=== PATIENT | male | born 1955 | race Caucasian/White ===

== ENCOUNTER 2025-06-11 08:26 | Outpatient (CLI) | payer MEDICARE, BC, SELFPAY ==
--- NOTE | ~2025-06-11 | NM_ITS ---
EXAMINATION: NM_HEPATWP_NM DATE: 06/11/2025 10:41 INDICATION: Cholelithiasis. Right upper quadrant abdominal pain. COMPARISON: None. TECHNIQUE: 5.2 mCi Tc-99m mebrofenin (Choletec) was administered intravenously. Scintigraphic images of the abdomen were obtained for one hour. 2.5 mcg sincalide (Kinevac) was administered by slow intravenous infusion, and imaging was continued for 30 minutes. Gallbladder ejection fraction was calculated by the technologist. FINDINGS: There is normal clearance of radiotracer from the blood pool. There is homogeneous tracer uptake by the liver. Activity progresses to the gallbladder and bowel. The gallbladder ejection fraction (GBEF) is 17% (normal 10-90%, but most patient with gallbladder dysfunction have GBEF < 35% which does overlap with the normal range). IMPRESSION: 1. Gallbladder ejection fraction of 17% which is at the lower range of normal. This could be normal but is also within the range of overlap with gallbladder dysfunction or chronic cholecystitis in the appropriate clinical setting. Reviewed, dictated and finalized at location A.
--- OUTSIDE RECORDS SUMMARY | 2025-06-11 08:45 | XMS_ITS | Clinical Summary ---
Author Organization [facility] Address [address] [place] [address] Phone Care Team Providers Care Electric Container Tester Name Role Phone Unavailable Primary Care Provider Unavailabl e Allergies Active Allergy Reactions Criticality Noted Date Comments Atorvastatin Other (See Comments) Low 05/11/2022 Joint pain Medications fexofenadine (BALTA) 180 mg tablet Take 180 mg by mouth daily. Active ALPRAZolam (XANAX) 0.25 mg tablet Take 0.25 mg by mouth 3 times daily as needed for Anxiety. Active amLODIPine (NORVASC) 5 mg tablet Take 7.5 mg by mouth daily. Active cefdinir (OMNICEF) 300 mg capsule Take 300 mg by mouth every 12 hours. Active lisinopriL (PRINIVIL) 10 mg tablet Take 10 mg by mouth daily. Active pravastatin (PRAVACHOL) 20 mg tablet Take 20 mg by mouth daily with supper. Active sodium bicarbonate 650 mg tablet Take 650 mg by mouth daily. Active tamsulosin (FLOMAX) 0.4 mg capsule Take 0.4 mg by mouth daily. 1/2 hour after the same meal each day Active triamcinolone acetonide 0.025 % Lotion Apply to affected area. Apply thin layer to the affected areas Active sildenafiL (VIAGRA) 100 mg tablet Take 50-100 mg by mouth 1 time daily as needed for Erectile Dysfunction. Active Cholecalciferol, Vitamin D3, 50 mcg (2,000 unit) Capsule Take 1 Capsule by mouth daily. Active apixaban (ELIQUIS) 5 mg tablet Take 1 Tablet (5 mg) by mouth 2 times daily. Active Social History Tobacco Use Types Packs/Day Years Used Date Smoking Tobacco: Former Cigarettes Tobacco Cessation:Counseling Given: Not Answered Sex and Gender Information Value Date Recorded Sex Assigned at Not on file Legal Sex Male 2:00 PM CDT Gender Identity Not on file Sexual Orientation Not on file Last Filed Vital Signs Vital Sign Reading Time Taken Comments Blood Pressure 130/85 05/12/2022 1:00 PM CDT Pulse 65 05/12/2022 1:00 PM CDT Temperature 36.3 C (97.3 F) 05/12/2022 10:40 AM CDT Respiratory Rate 14 05/12/2022 11:09 AM CDT Oxygen Saturation 99% 05/12/2022 1:00 PM CDT Inhaled Oxygen Concentration - - Weight 113.4 kg (250 lb) 05/12/2022 7:19 AM CDT Height 185.4 cm (6' 1) 05/12/2022 7:19 AM CDT Body Mass Index 32.98 05/12/2022 7:19 AM CDT Plan of Treatment Health Maintenance Due Date Last Done Comments DTAP/TDAP/TD VACCINES (1 - Tdap) 1973 COLORECTAL SCREENING 1999 Colorectal Cancer Screening 1999 FIT-DNA Q 3 years 1999 FIT/FOBT Q 1 year 1999 Flex Sig/CT Colonography Q 5 years 1999 PNEUMOCOCCAL VACCINE 50+ YEARS (1 of 1 - PCV) 02/18/20 04 ZOSTER VACCINE (1 of 2) 02/18/2004 INFLUENZA VACCINE (#1) 2025 RSV VACCINE (60+ or ) (1 - 1-dose 75+ series) 2029 Medical Devices Implanted Type Area Agents' Records Clerk Device Identifier Shelf Expiration Date Model / Serial / Lot Closure Perclose Proglide [id number] - [id number] Implanted:Qty : 1 on 05/12/2022 at [facility] Closure Device Right: Groin JERONIMO- VASC DEVICE 02/20/2024 [id number] / / [id number] Closure Perclose Proglide [id number] - [id number] Implanted:Qty : 1 on 05/12/2022 at [facility] Closure Device Right: Groin JERONIMO- VASC DEVICE 02/20/2024 [id number] / / [id number] Pacemaker Micra Vr 23fr 105cm Transcath Pacing [facility] [id number] - [id number] Implanted:Qty : 1 on 05/12/2022 at [facility] Pacemaker Chest [employer] 05/20/2023 [id number] / [id number] / Insurance MEDICARE PART A AND B Advance Directives For more information, please contact: [phone] * Full Code (Latest Code Status on File) Date Activated Date Inactivated Comments 05/12/2022 12:17 PM 05/12/2022 5:10 PM
--- OUTSIDE RECORDS SUMMARY | 2025-06-11 08:45 | XMS_ITS | Clinical Summary ---
Author Organization [facility] Address [address] [place] [address] Phone Care Team Providers Care Parts Chaser Name Role Phone Ramez Bermeo MD Primary Care Provider [phone] Medications amLODIPine (NORVASC) 5 MG Tablet Take 5 mg by mouth daily. Active fluticasone (FLONASE) 50 MCG/ACT Suspension 1-2 Sprays by Nasal route daily. Use in each nostril as directed. Active lisinopril (PRINIVIL, ZESTRIL) 10 MG Tablet Take 10 mg by mouth daily. Active pravastatin (PRAVACHOL) 20 MG Tablet Take 20 mg by mouth daily. Active tamsulosin (FLOMAX) 0.4 MG Capsule Take 0.4 mg by mouth daily. Active Vitamin D3 1000 UNIT Tablet Take 25 mcg by mouth daily. Active sildenafil citrate (VIAGRA) 100 MG Tablet Take 100 mg by mouth as needed. Active MEDICAL CANNABIS Act cipriano SODIUM BICARBONATE PO Take 650 mg by mouth. Active triamcinolone (KENALOG) 0.025 % Cream Apply 2 times daily. Active Fexofenadine HCl (BALTA PO) Take by mouth. Active Family History Medical History Relation Name Comments Stroke Father Heart Disease Mother Relation Name Status Comments Father Mother Social History Tobacco Use Types Packs/Day Years Used Date Smoking Tobacco: Former Cigarettes Q uit: 08/23/2006 Smokeless Tobacco: Never Alcohol Use Standard Drinks/Week Comments Not Currently 0 (1 standard drink = 0.6 oz pur e alcohol) Sex and Gender Information Value Date Recorded Sex Assigned at Not on file Legal Sex Male 11:19 AM CDT Gender Identity Not on file Sexual Orientation Not on file Last Filed Vital Signs Vital Sign Reading Time Taken Comments Blood Pressure 160/80 03/30/2022 3:27 PM CDT Pulse 52 03/30/2022 3:27 PM CDT Temperature 36.6 C (97.9 F) 03/30/2022 3:27 PM CDT Respiratory Rate 18 03/30/2022 3:27 PM CDT Oxygen Saturation 98% 03/30/2022 3:27 PM CDT Inhaled Oxygen Concentration - - Weight 115.4 kg (254 lb 8 oz) 03/30/2022 3:27 PM CDT Height 185.4 cm (6' 1) 03/30/2022 3:27 PM CDT Body Mass Index 33.58 03/30/2022 3:27 PM CDT Plan of Treatment Health Maintenance Due Date Last Done Comments Hepatitis C Virus (HCV) Screening 1954 Cologuard 1999 Colonoscopy 1999 Colorectal Cancer Screening 1999 Immunochemical Fecal Occult Blood 1999 Pneumococcal Immunization (50+ years) (1 of 1 - PCV) 02/18/2004 Zoster Immunization (1 of 2) 02/18/2004 Medicare Initial AWV [id number] 01/22/2020 Influenza Immunization (#1) 04/23/202504/25, 05/30/2020, 07/21/2018 SARS-COV-2 Immunization ( season) 2025 01/22/2022, 06/17/2021, 11/14/2020, Additional history exists Respiratory Syncytial Virus (RSV) Immunization (Adult) (1 - 1-dose 75+ series) 2029 DTaP/Tdap/Td Immunization Discontinued 10/07/2018 TdaP Immunization Completed 10/07/2018 Hepatitis B Immunization Aged Out No longer eligible based on patient's age to complete this topic Human Papillomavirus (HPV) Immunization Aged Out No longer eligible based on patient's age to complete this topic Meningococcal Immunization (ACWY) Aged Out No longer eligible based on patient's age to complete this topic Rotavirus Immunization Aged Out No lo nger eligible based on patient's age to complete this topic Insurance MEDICARE [facility] Care Teams Parts Chaser Relationship Specialty Start Date End Date Ramez Bermeo MD [address] [place] [phone] PCP - General Family Medicine 03/25/22
--- OUTSIDE RECORDS SUMMARY | 2025-06-11 08:45 | XMS_ITS | Clinical Summary ---
Author Organization [facility] Address [address] [place] [address] Phone Care Team Providers Care Advertising Operations Manager Name Role Phone Ramez Bermeo MD Primary Care Provider Allergies Active Allergy Reactions Criticality Noted Date Comments Roman Inhibitors 08/14/2024 Atorvastatin 08/14/2024 Social History Tobacco Use Types Packs/Day Years Used Date Smoking Tobacco: Never Assessed Sex and Gender Information Value Date Recorded Sex Assigned at Not on file Legal Sex Male 9:25 AM MDT Gender Identity Not on file Sexual Orientation Not on file Plan of Treatment Upcoming Encounters Date Type Department Care Team (Late st Contact Info) Description 11/05/2025 10:00 AM CDT Office Visit [facility] [address] [place] [address] Iván Faye MD [address] [address] Health Maintenance Due Date Last Done Comments Pneumococcal PPSV23/PCV13 65 + Years / High and Highest Risk (1 of 5 - PCV) 1973 Influenza Vaccine (#1) 2025 05/30/2020, 2017 Insurance MEDICARE PM INTERFACED INSURANCE Care Teams Advertising Operations Manager Relationship Specialty Start Date End Date Ramez Bermeo MD [address] [place] [phone] PCP - General 08/14/24
== END 2025-06-11 08:27 | disposition home or self-care (01) ==
PROVIDERS: Visit Provider Surgery
DX: K80.20 Calculus of gallbladder without cholecystitis without obstruction (principal)
CPT/HCPCS: 78227; A9537; J2805

== ENCOUNTER 2025-07-23 10:10 | Outpatient (CLI) | payer MEDICARE, BC, SELFPAY ==
--- NOTE | 2025-07-23 10:34 | ECG_ITS ---
Test Date: 2025-07-23 10:55:32 Measurements Intervals [place] Rate: 60 P: 0 KS: 0 QRS: 48 QRSD: 153 T: 108 QT: 462 QTc: 462 Interpretive Statements ELECTRONIC VENTRICULAR PACEMAKER BASELINE ARTIFACT- I, II, III, AVR, AVL, AVF, V1-V6 NO FURTHER INTERPRETATION IS POSSIBLE ATYPICAL ECG No previous ECG available for comparison Electronically Signed On 07-23-2025 13:15:17 STRING TOP SEALER by Gurjit Clark D.O.
[2025-07-23 11:17] LABS: INR 2.4; Prothrombin Time 25.6 Seconds (11.1-14.7)
[2025-07-23 11:18] LABS: Partial Thromboplastin Time 38.1 Seconds (22.3-36.8)
[2025-07-23 11:25] LABS: Alanine Aminotransferase 20 U/L (6-50); Albumin Level 4.4 g/dL (3.5-5.1); Alkaline Phosphatase 89 U/L (38-126); Amylase 114 U/L (30-110); Aspartate Amino Transferase 32 U/L (17-59); Bilirubin,Total 0.9 mg/dL (0.2-1.3); Lipase 147 U/L (23-300); Total Protein 7.9 g/dL (6.3-8.2)
--- OUTSIDE RECORDS SUMMARY | 2025-07-23 11:34 | XMS_ITS | Clinical Summary ---
Author Organization [facility] Address [address] [place] [address] Phone Care Team Providers Care Tank Bottom Assembler Name Role Phone Ramez Bermeo MD Primary Care Provider [phone] Medications amLODIPine (NORVASC) 5 MG Tablet Take [...] Years Used Date Smoking Tobacco: Former Cigarettes 0 Q uit: 08/23/2006 Smokeless Tobacco: Never Alcohol [...] age to complete this topic Insurance MEDICARE [facility] Care Teams Tank Bottom Assembler Relationship Specialty Start Date End Date Ramez Bermeo MD [address] [place] [phone] PCP - General Family Medicine 03/25/22
--- OUTSIDE RECORDS SUMMARY | 2025-07-23 11:34 | XMS_ITS | Clinical Summary ---
Author Organization [facility] Address [address] [place] [address] Phone Care Team Providers Care Bradley Linebacker Crewmember Name Role Phone Ramez Bermeo MD Primary [...] Description 11/05/2025 10:00 AM CDT Office Visit [facility] [address] [place] [address] Iván Faye MD [address] [address] Health Maintenance Due Date Last Done Comments Pneumococcal PPSV23/PCV13 65 + Years / High and Highest Risk (1 of 5 - PCV) 1973 Influenza Vaccine (#1) 2025 05/30/2020, 2017 Insurance MEDICARE PM INTERFACED INSURANCE Care Teams Bradley Linebacker Crewmember Relationship Specialty Start Date End Date Ramez Bermeo MD [address] [place] [phone] PCP - General 08/14/24
--- OUTSIDE RECORDS SUMMARY | 2025-07-23 11:34 | XMS_ITS | Clinical Summary ---
Author Organization [facility] Address [address] [place] [address] Phone Care Team Providers Care Telegraph Repeater Technician Name Role Phone Unavailable Primary Care Provider [...] series) 2029 Medical Devices Implanted Type Area Sleeve Sewer Device Identifier Shelf Expiration Date Model / Serial / Lot Closure Perclose Proglide 11313 - [id number] Implanted:Qty : 1 on 05/12/2022 at [facility] Closure Device Right: Groin JERONIMO- VASC DEVICE 02/20/2024 [id number] / / [id number] Closure Perclose Proglide [id number] - [id number] Implanted:Qty : 1 on 05/12/2022 at [facility] Closure Device Right: Groin JERONIMO- VASC DEVICE 02/20/2024 [id number] / / [id number] Pacemaker Micra Vr 23fr 105cm Transcath Pacing s [id number] - [id number] Implanted:Qty : 1 on 05/12/2022 at [facility] Pacemaker Chest [employer] 05/20/2023 [id number] / [id number] / Insurance BCBS BLUE ACCESS/TRUE BLUE PPO MEDICARE PART A AND B Advance Directives For more information, please contact: [phone] * Full Code (Latest Code Status on File) Date Activated Date Inactivated Comments 05/12/2022 12:17 PM 05/12/2022 5:10 PM
[2025-07-23 11:44] LABS: Anion Gap 7 mmol/L (4-12); Blood Urea Nitrogen 22 mg/dL (9-20); Calcium 9.4 mg/dL (8.4-10.2); Carbon Dioxide 26 mmol/L (22-30); Chloride 106 mmol/L (98-107); Estimated Glomerular Filt Rate 44; Glucose 98 mg/dL (65-110); Potassium 4.1 mmol/L (3.4-5.0); Sodium 139 mmol/L (137-145)
== END 2025-07-23 10:11 | disposition home or self-care (01) ==
LOC: ANHSURGERY 10:19
PROVIDERS: Anesthesiology; Visit Provider Surgery
DX: K80.20 Calculus of gallbladder without cholecystitis without obstruction (principal); I12.9 Hypertensive chronic kidney disease with stage 1 through stage 4 chronic kidney disease, or unspecified chronic kidney disease; N18.30 Chronic kidney disease, stage 3 unspecified; Z01.818 Encounter for other preprocedural examination; Z95.0 Presence of cardiac pacemaker
CPT/HCPCS: 36415; 80048; 80076; 82150; 83690; 85610; 85730; 93005

== ENCOUNTER 2025-07-30 00:54 | Day surgery (SDC) | payer MEDICARE, BC, SELFPAY ==
[2025-07-13 10:08] VITALS: BMI 35.2
--- NOTE | 2025-07-13 10:42 | PC.NURSE ---
[facility] has started construction of its new state of the art ER which will open Spring 2026. With this, we anticipate parking may be a challenge for some our surgical patients and families. Parking spaces are limited but are available for all Surgical, obstetrics, and ER patients sharing this lot. If you arrive and find you are having a hard time finding a parking space, please note that we understand the challenges, please drive around the hospital and park near Hospital Entrance 1. When you enter this entrance, you can ask a volunteer to direct or take you back to the surgical waiting area to check in. We appreciate everyone?s understanding of these expected challenges while we build for your future. Report to the Outpatient Waiting Room, entrance under the green pavilion located off [address], at time __10:00AM____ on date __07/30/25___. Planned Procedure Time: ___12:00PM____.? Time changes happen often and if your time is changed the preop area will call you the afternoon before. - You and your visitor will be asked to self-screen and do not enter if you have any COVID symptoms. Please call surgeon if you need to reschedule. - A mask is optional within the hospital at this time. Patients may have clear liquids (water, carbonated beverages, clear teas, apple juice) until 3 hours prior to surgery (9:00AM) with a maximum of 20 ounces. - No food from midnight until time of surgery and no smoking, or chewing tobacco (or any form of nicotine). No chewing gum, candy or mints. Take only the following medications with a SIP of water on the morning of surgery: __AMLODIPINE, METOPROLOL DO NOT STOP ANY OF YOUR OTHER PRESCRIPTION MEDICATIONS PRIOR TO SURGERY EXCEPT THE FOLLOWING Hold all vitamins and supplements for 3 days per anesthesiologist. LAST DOSE 07/26/25 Medications to discontinue per physician __HOLD XERALTO 3 DAYS PRE-OP PER DR MESA Date to take last dose____07/26/25 Please no make-up, nail hungarian, hairspray, perfume, deodorant, or body powder the day of surgery.? No jewelry (including any body piercings) or valuables the day of surgery, leave them at home.? Please take a shower or bath the night before, or the morning of, surgery with an antibacterial soap.? Wear comfortable, loose fitting clothing.? - Jewelry must be removed prior to entering the operating room.? Rings and piercings that are not removed may be cut off. - The hospital will not accept responsibility for valuables.? - Please leave all valuables, including medications, at home the day of surgery. If you are going home after surgery, a licensed concrete truck driver must drive you home.? - NO public transportation without another adult if you receive anesthesia. - We recommend that an adult stay with you for 24 hours following discharge. - We also recommend that you do not drive, make important decision, drink alcoholic beverages, or take any drugs that were not prescribed by your health care provider for at least 24 hours after your discharge time. Follow any additional instructions given to you from your surgeon. Telephone instructions given to ____PATIENT'S , ELENA and asked if any additional questions and then verbalized understanding. Patient advised to call surgeon office or pre surgery nurse liaison [phone] if any additional questions.
[2025-07-30] VITALS (8 sets, daily range): BP systolic 139–162; BP diastolic 71–82; PULSE 60–62; RESP 10–18; TEMP 36.4; O2SAT 98–100; BMI 34.5
--- OUTSIDE RECORDS SUMMARY | 2025-07-30 00:57 | XMS_ITS | Clinical Summary ---
Author Organization [facility] Address [address] [place] [address] Phone Care Team Providers Care Tile Fitter Name Role Phone Ramez Bermeo MD Primary Care Provider [phone] Medications amLODIPine (NORVASC) 5 MG Tablet Take [...] age to complete this topic Insurance MEDICARE [facility] Care Teams Tile Fitter Relationship Specialty Start Date End Date Ramez Bermeo MD [address] [place] [phone] PCP - General Family Medicine 03/25/22
--- OUTSIDE RECORDS SUMMARY | 2025-07-30 00:57 | XMS_ITS | Clinical Summary ---
Author Organization [facility] Address [address] [place] [address] Phone Care Team Providers Care Lime Kiln And Recausticizing Operator Name Role Phone Ramez Bermeo MD Primary [...] Description 11/05/2025 10:00 AM CDT Office Visit [facility] [address] [place] [address] Iván Faye MD [address] [address] Health Maintenance Due Date Last Done Comments Pneumococcal PPSV23/PCV13 65 + Years / High and Highest Risk (1 of 5 - PCV) 1973 Influenza Vaccine (#1) 2025 05/30/2020, 2017 Insurance MEDICARE PM INTERFACED INSURANCE Care Teams Lime Kiln And Recausticizing Operator Relationship Specialty Start Date End Date Ramez Bermeo MD [address] [place] [phone] PCP - General 08/14/24
--- OUTSIDE RECORDS SUMMARY | 2025-07-30 00:57 | XMS_ITS | Clinical Summary ---
Author Organization [facility] Address [address] [place] [address] Phone Care Team Providers Care Client Manager Large Law Name Role Phone Unavailable Primary Care Provider [...] series) 2029 Medical Devices Implanted Type Area Rope Twisting Machine Operator Device Identifier Shelf Expiration Date Model / Serial / Lot Closure Perclose Proglide 03049 - [id number] Implanted:Qty : 1 on 05/12/2022 at [facility] Closure Device Right: Groin JERONIMO- VASC DEVICE 02/20/2024 [id number] / / [id number] Closure Perclose Proglide [id number] - [id number] Implanted:Qty : 1 on 05/12/2022 at [facility] Closure Device Right: Groin JERONIMO- VASC DEVICE 02/20/2024 [id number] / / [id number] Pacemaker Micra Vr 23fr 105cm Transcath Pacing Sys [id number] - [id number] Implanted:Qty : 1 on 05/12/2022 at [facility] Pacemaker Chest [employer] 05/20/2023 [id number] / [id number] / Insurance BCBS BLUE ACCESS/TRUE BLUE PPO MEDICARE PART A AND B Advance Directives For more information, please contact: [phone] * Full Code (Latest Code Status on File) Date Activated Date Inactivated Comments 05/12/2022 12:17 PM 05/12/2022 5:10 PM
--- NOTE | 2025-07-30 09:10 | WPDANESEPPF ---
Anes - Initial Pre Proc Eval Procedure: Operation Date: 07/30/25 10:30 Proposed Procedures p Laparoscopic Cholecystectomy, Possible Open - Power Millan MD Date/Time: 07/30/25 09:10 Surgeon: Power Millan MD Pre Op Diagnosis: symptomatic cholelithiasis Patient Data Age: 70 Gender: M Height: 1.83 m Weight: 115.6 kg Last Vital Signs Temp 36.4 C 07/30/25 08:24 Pulse 62 07/30/25 08:24 Resp 18 07/30/25 08:24 BP 157/78 H 07/30/25 08:24 Pulse Ox 100 07/30/25 08:24 O2 Del Method Room Air 07/30/25 08:24 Allergies Allergy/AdvReac Type Severity Reaction Status Date / Time atorvastatin AdvReac Unknown joint pain Verified 07/13/25 09:57 Home Medications ?Medication ?Instructions ?Recorded ?Confirmed ?Type allopurinol 100 mg tablet 100 mg PO DAILY 05/14/25 07/13/25 History alprazolam 0.25 mg tablet 0.25 mg PO DAILY PRN insomnia 05/14/25 07/13/25 History amlodipine 5 mg tablet 5 mg PO DAILY 05/14/25 07/13/25 History cholecalciferol (vitamin D3) 50 50 mcg PO DAILY 05/14/25 07/13/25 History mcg (2,000 unit) capsule furosemide 20 mg tablet (Lasix) 20 mg PO QAM 05/14/25 07/13/25 History metoprolol succinate 25 mg 25 mg PO DAILY 05/14/25 07/13/25 History tablet,extended release 24 hr pravastatin 20 mg tablet 20 mg PO DAILY 05/14/25 07/13/25 History rivaroxaban 20 mg tablet (Xarelto) 20 mg PO DAILY 05/14/25 07/13/25 History sildenafil 100 mg tablet (Viagra) 100 mg PO DAILY PRN sexual activity 05/14/25 07/13/25 History sodium bicarbonate 650 mg tablet 650 mg PO DAILY 05/14/25 07/13/25 History tobramycin 0.3 %-dexamethasone 1 drp EACH EYE Q6H 05/14/25 07/13/25 History 0.05 % eye drops,suspension (Tobradex ST) triamcinolone acetonide 0.025 % 1 applic topical BID PRN skin 05/14/25 07/13/25 History topical cream irritation tamsulosin 0.4 mg capsule 0.4 mg PO DAILY 07/13/25 07/13/25 History Patient hx anesthesia problems: none Family hx anesthesia problems: none Results Review: All pre-operative results and documents have been reviewed as part of the pre-operative evaluation. [facility] Past Medical History Medical History Hx of cardiac pacemaker Hx of kidney disease Hx of essential hypertension Hx of congenital heart disease History of heart attack History of gastroesophageal reflux (GERD) Hx of congestive heart failure Hx of anxiety disorder Subsequent non-ST elevation (NSTEMI) myocardial infarction Surgical History Surgical History Hx of colonoscopy Family History Family History Mother Alcoholism Hypertension Sibling Diabetes mellitus Hypertension Father Hypertension Cerebrovascular accident Grandparent Throat cancer Social History Social History Smoking status: Former smoker Tobacco type: cigars Smoking end date: 02/21/08 Additional smoking assessment comments: SMOKED ~2 CIGARS/DAY X30 YRS Alcohol intake: former Substance use: never Lack of Transportation: No Lack of Food: Never True Current Housing: I Have Housing Concerned About Future Housing: No Difficulty Paying Gas/Electric Bills: No Difficulty Paying for Meds: No Currently Unemployed: No Education: High School Diploma/GED Difficulty w/ Childcare or Family Care: No Living arrangements: with family Additional living arrangements comments: Occupation/Education: occupation Spiritual care concerns: No Anes - Eval Final PreProcedure Day of Procedure 07/30/25 09:10 Patient weight: obese Heart: regular rate and rhythm Lungs: clear to auscultation Airway: Mallampati scale class II Neurological: alert and oriented Last oral intake: >/= 8 hours ASA classification: III Emergent: no Anesthetic plan: proceed Anesthesia type and monitoring: general ETT and standard monitoring Results Review: All pre-operative results and documents have been reviewed as part of the pre-operative evaluation. Informed Consent: The patient's anesthetic plan and its attendant risks and benefits were discussed with the patient/family/POA. Questions were solicited and answers provided to the satisfaction of the patient/family/POA.
[2025-07-30] MEDS: ACETAMINOPHEN 500 MG TABLET 1000 MG PO (09:21)
[2025-07-30] MEDS: KETOROLAC 15 MG/ML VIAL (*BKC) IV PUSH (09:36)
[2025-07-30] MEDS: LACTATED RINGERS 1,000 ML 30 ML IV CONT ×2 (09:39→12:41)
[2025-07-30 09:59] LABS: INR 1.0; Prothrombin Time 13.5 Seconds (11.1-14.7)
[2025-07-30 10:00] LABS: Partial Thromboplastin Time 30.6 Seconds (22.3-36.8)
[2025-07-30 10:02] LABS: Anion Gap 5 mmol/L (4-12); Blood Urea Nitrogen 23 mg/dL (9-20); Calcium 9.7 mg/dL (8.4-10.2); Carbon Dioxide 25 mmol/L (22-30); Chloride 108 mmol/L (98-107); Estimated CRCL calculation 48 ml/min; Estimated Glomerular Filt Rate 41; Glucose 102 mg/dL (65-110); Potassium 4.0 mmol/L (3.4-5.0); Sodium 138 mmol/L (137-145)
--- NOTE | 2025-07-30 10:31 | PM.IMHP2 ---
H&P: HPI History of Present Illness Date/Time: 07/30/25 10:31 Chief Complaint: Gallbladder dysfunction, biliary colic Narrative: Mr. Hong returns to office to discuss results from recent HIDA scan done on 06/11/2025. HIDA scan showed gallbladder ejection fraction of 17% which is at the lower range of normal. This could be normal but is also within the range of overlap with gallbladder dysfunction or chronic cholecystitis in the appropriate clinical setting. Patient reports still experiencing nausea and diarrhea after eating greasy and fatty food. Patient states he started taking Prilosec to help with Patient denies vomiting and constipation. Review of Systems Review of Systems: The remainder of the review of systems to include constitutional, HEENT, cardiovascular, respiratory, GI, , integumentary, musculoskeletal, endocrine, immunologic, hematologic, psychiatric, and neurologic are all negative except for which is mentioned above in the HPI. [facility] Past Medical History Medical History Hx of cardiac pacemaker Hx of kidney disease Hx of essential hypertension Hx of congenital heart disease History of heart attack History of gastroesophageal reflux (GERD) Hx of congestive heart failure Hx of anxiety disorder Subsequent non-ST elevation (NSTEMI) myocardial infarction Surgical History Surgical History Hx of colonoscopy Family History Family History Mother Alcoholism Hypertension Sibling Diabetes mellitus Hypertension Father Hypertension Cerebrovascular accident Grandparent Throat cancer Social History Social History Smoking status: Former smoker Tobacco type: cigars Smoking end date: 02/21/08 Additional smoking assessment comments: SMOKED ~2 CIGARS/DAY X30 YRS Alcohol intake: former Substance use: never Lack of Transportation: No Lack of Food: Never True Current Housing: I Have Housing Concerned About Future Housing: No Difficulty Paying Gas/Electric Bills: No Difficulty Paying for Meds: No Currently Unemployed: No Education: High School Diploma/GED Difficulty w/ Childcare or Family Care: No Living arrangements: with family Additional living arrangements comments: Occupation/Education: occupation Spiritual care concerns: No Meds Home Medications and Allergies Home Medications ?Medication ?Instructions ?Recorded ?Confirmed ?Type allopurinol 100 mg tablet 100 mg PO DAILY 05/14/25 07/13/25 History alprazolam 0.25 mg tablet 0.25 mg PO DAILY PRN insomnia 05/14/25 07/13/25 History amlodipine 5 mg tablet 5 mg PO DAILY 05/14/25 07/13/25 History cholecalciferol (vitamin D3) 50 50 mcg PO DAILY 05/14/25 07/13/25 History mcg (2,000 unit) capsule furosemide 20 mg tablet (Lasix) 20 mg PO QAM 05/14/25 07/13/25 History metoprolol succinate 25 mg 25 mg PO DAILY 05/14/25 07/13/25 History tablet,extended release 24 hr pravastatin 20 mg tablet 20 mg PO DAILY 05/14/25 07/13/25 History rivaroxaban 20 mg tablet (Xarelto) 20 mg PO DAILY 05/14/25 07/13/25 History sildenafil 100 mg tablet (Viagra) 100 mg PO DAILY PRN sexual activity 05/14/25 07/13/25 History sodium bicarbonate 650 mg tablet 650 mg PO DAILY 05/14/25 07/13/25 History tobramycin 0.3 %-dexamethasone 1 drp EACH EYE Q6H 05/14/25 07/13/25 History 0.05 % eye drops,suspension (Tobradex ST) triamcinolone acetonide 0.025 % 1 applic topical BID PRN skin 05/14/25 07/13/25 History topical cream irritation tamsulosin 0.4 mg capsule 0.4 mg PO DAILY 07/13/25 07/13/25 History Allergies Allergy/AdvReac Type Severity Reaction Status Date / Time atorvastatin AdvReac Unknown joint pain Verified 07/13/25 09:57 Vital Signs Vital Signs - 24 hr 07/30/25 08:24 Temperature 36.4 C Pulse Rate 62 Respiratory Rate 18 Blood Pressure 157/78 H Pulse Oximetry 100 Oxygen Delivery Room Air Exam Const: General: comfortable and no acute distress HENMT: Ears: TM's normal bilaterally Face/Nose/Sinus: Normal nares present Mouth: Yes moist mucous membranes Eyes: General: appearance normal, both eyes and all related structures Sclera: sclerae normal Pupils: Equal, round and reactive pupils present EOM: EOMs intact bilaterally Neck: Neck: supple and no JVD Resp: Effort & Inspection: normal respiratory effort Auscultation: clear to auscultation bilaterally Cardio: Rate: regular rate Rhythm: regular rhythm GI: Other: Abdomen soft, moderately obese, no ventral hernias. Non tender RUQ. No masses. Skin: General skin exam: normal color and no rashes or lesions noted Neuro: General: gait normal and deep tendon reflexes 2+ bilaterally Speech: normal speech Motor exam (neuro): 5/5 motor strength present throughout Sensory Exam: normal sensation Extrem: General: normal to inspection Psych: Mental Status: mental status grossly normal Affect: normal affect Results Labs Labs: [facility] 07/30/25 09:32 Sodium 138 Potassium 4.0 Chloride 108 H Carbon Dioxide 25 BUN 23 H Creatinine 1.66 H Glucose 102 Calcium 9.7 Assessment and Plan Assessment and plan (1) Cholelithiasis: Code(s): K80.20 - Calculus of gallbladder without cholecystitis without obstruction Status: Acute (2) Dysfunctional gallbladder: Code(s): K82.8 - Other specified diseases of gallbladder Status: Acute Assessment and Plan: Patient has gallstones and gallbladder dysfunction with HIDA GBEF of 17%. RUQ pain and nausea are likely due to his gallbladder. Patient on Xarelto, will need to stop medication 3 days prior to surgery. I have recommended a laparoscopic cholecystectomy, possible open, to be done under general anesthesia as an outpatient. We discussed the procedure in detail as well as risks of conversion to open, bleeding, infection & bile leak. Gallbladder information sheet and low fat diet information was given to the patient. Discussed the typical postoperative recovery. All questions were answered. Patient would like to proceed. Follow-up 2 weeks postoperatively.
--- NOTE | 2025-07-30 10:34 | WPDHPUPDATE1 ---
History and Physical Update Update Date/Time: 07/30/25 10:34 History and Physical has been reviewed, including an updated exam of the patient. There are NO changes in the patient's condition. Risks, benefits, and alternatives have been discussed and questions answered. Patient agrees to proceed with procedure.
[2025-07-30] MEDS: ceFAZolin 2 GM in SODIUM CHLORIDE 0.9% IV 50 ML 100 ML IVPB (10:42)
[2025-07-30] MEDS: LIDO 1%/EPINEPHRINE 1:100,000 20 ML VIAL 30 ML INFILTRATE (11:15)
--- NOTE | 2025-07-30 12:02 | S_PTH ---
PATIENT: Beni Hong LOC: [facility] U#:[id number] AGE/SX: 70/M ROOM: RE07/30/[address]: Power Millan MD : [id number] BED: DIS: 07/30/2025 SPEC #: [id number] RECD: 07/30/25 13:29 STATUS: DU REHa #: [id number] BEN: 07/30/25 12:[address]: Power Millan DEPT: [facility] Surgical RECD BY: Cindy Cordero Tissues: A - Gallbladder Procedures: Hematoxylin and Eosin Stain Gross and Microscopic Level 3
[2025-07-30] MEDS: ONDANSETRON INJ 4 MG/2 ML VIAL IV PUSH (13:42)
[2025-07-30] MEDS: oxyCODONE HCL (*CRX) 5 MG TAB IR PO (13:48)
--- NOTE | 2025-07-31 08:14 | W.PM.PROC2 ---
Procedure Note - Detailed Date of Procedure 07/30/25 Pre-op Diagnosis Symptomatic cholelithiasis and gallbladder dysfunction Post-op Diagnosis Same Procedure Performed Laparoscopic cholecystectomy Surgeon Power Millan MD Company Controller JOHN Yeh Anesthesia General Indications Patient is a 70-year-old gentleman who and having right upper quadrant abdominal pain with eating. Abdominal ultrasound showed gallstones. HIDA scan showed a low ejection fraction of gallbladder 17%. He presents now for an elective laparoscopic cholecystectomy. Findings The gallbladder had small gallstones. There was some minimal chronic inflammation of the gallbladder. The gallbladder was surrounded by visceral fatty tissue. Description of Procedure After informed consent was obtained patient was brought to the operating room was placed supine position and general endotracheal anesthesia was administered. The abdomen was then prepped and draped usual sterile fashion. A time-out was then performed correctly identifying the patient as well as procedure to be performed. He was given perioperative IV antibiotics. I 1st attempted placement of a 5mm Optiview port in the left upper quadrant. I could not get a good view of the peritoneum once had tried to go through with the port. I then switched and tried to do a Veress needle insertion at the umbilicus after making a small incision in this area. I could never really get a good reading of low intra-abdominal pressure upon entering and so I then switched to a cutdown placement of a hospice on trocar. An incision was then made supraumbilically with area and dissection was carried down through the subcutaneous tissue electrocautery. Once I reached the midline fascia and elevated between Diana clamps and then sharply entered the abdomen utilizing curved Zepeda scissors. Once inside the abdomen I incised the peritoneum and then entered the abdomen. I then placed the aside trocar into the abdomen and placed some Vicryl sutures on the edges of the fascia. In I then insufflated to adequate pneumoperitoneum of 15mmHg of CO2. I then see that there were no really adhesions causing obscuring of the visualization. It was most likely this very generous fat adipose tissue in the preperitoneal space. There is no evidence of bowel injury. I then placed additional trocar ports to include a 10mm epigastric trocar port 2 more right lateral subcostal 5mm trocar ports on direct visualization the gallbladder is visualized the right upper quadrant. It was involved with then a layer of visceral adipose tissue which was not the omentum. I was able to hold the gallbladder at the dome and elevated the gallbladder over the right half liver towards right shoulder. Small amount omentum which was loosely adherent to the gallbladder wall was stripped away easily with blunt dissection. I then proceeded to strip down the fatty visceral peritoneal layer until I could identify the infundibular gallbladder. I then placed a 2nd laparoscopic grasper on the infundibulum there was lateral traction I continued my dissection of the visceral peritoneum off of the infundibulum to identify the cystic duct. The cystic duct was then dissected out circumferentially. The cystic artery was then identified dissected out circumferentially as well. Posterior wall the gallbladder at the infundibulum dissected free of the liver into the critical view was obtained. At this point I then placed 2 clips on the infundibular gallbladder and 2 clips distally on the cystic duct and then divided with Endo Manuel. The cystic artery was then clipped and divided a similar fashion. The gallbladder was then resected off the liver utilizing electrocautery. Once the gallbladder was free from liver is placed into an Endo-Catch bag and brought out through the epigastric port site. The gallbladder was gallstones within were sent to pathology for examination. I then irrigated out the right upper quadrant and the gallbladder fossa with sterile saline solution hemostasis was good. There was no bile leak. I then removed all the trocar ports under direct visualization all port sites appeared hemostatic. The abdomen is last decompressed. I then irrigated all the port sites sterile saline solution. The epigastric 10mm trocar port fascial defect was closed utilizing 0 Vicryl suture. The periumbilical trocar port cutdown incision was then closed with multiple interrupted 0 Vicryl sutures placed in a figure-eight fashion. Incisions were then irrigated sterile saline solution hemostasis was good. The all then closed utilizing a running subcuticular 4 Monocryl suture at the skin level. The patient tolerated the procedure well no complications. All sponges, needles, and instrument counts were correct at the end procedure. EBL was _30__cc. The patient was awakened and taken to recovery in stable and satisfactory condition. Implants None Estimated Blood Loss 30 Drains No Packing No Pathology Yes ( gallbladder and gallstones sent to pathology) Complications No immediate complications Condition Stable Disposition PACU [facility] Billing Surgery - Charge Forward: Surgery Billing
== END 2025-07-30 14:40 | disposition home or self-care (01) ==
PROVIDERS: Visit Provider Surgery
PROC: 0FT44ZZ Resection of Gallbladder, Percutaneous Endoscopic Approach (ICD-10-PCS; CPT 47562; principal; 2025-07-30 10:30)
DX: K80.10 Calculus of gallbladder with chronic cholecystitis without obstruction (principal); Z79.01 Long term (current) use of anticoagulants; Z87.891 Personal history of nicotine dependence; E66.9 Obesity, unspecified; Z68.34 Body mass index [BMI] 34.0-34.9, adult
CPT/HCPCS: 47562; 36415; 80048; 85610; 85730; 88304; J0690; A9270; J1100; J1885; J2003; J2004; J2405; J2704; J3010; J7120